=== PATIENT | male | born 1975 | race Caucasian/White ===

== ENCOUNTER 2020-03-02 19:51 | Emergency (ER) | payer BC ==
[~2020-03-02] VITALS: Ht 177.8 cm; Wt 109.1 kg
[~2020-03-02 19:51] MED LIST: BUDE3CAP15 PO; ESZO3TAB66 PO; FLO0.4C PO
[2020-03-02 19:53] VITALS: BP 159/96
== END 2020-03-02 20:17 | disposition home or self-care (01) ==
LOC: ER 19:52
DX: R50.9 Fever, unspecified (principal); Z20.828 Contact with and (suspected) exposure to other viral communicable diseases; J02.9 Acute pharyngitis, unspecified; R19.7 Diarrhea, unspecified; Z98.890 Other specified postprocedural states; Z79.899 Other long term (current) drug therapy
CPT/HCPCS: 36415; 87635; 99281; 99283